=== PATIENT | female | born 1965 | race Two or more races ===

== ENCOUNTER → 2016-11-22 | Outpatient (CLI) | payer OTHER ==
[2016-11-22 13:24] LABS: BUN 19 mg/dL (7-18)
[2016-11-22 13:26] LABS: GFR (ESTIMATED) 105 ML/MIN (59-)
== END ==
LOC: MAY-LAB 13:02
PROVIDERS: Internal Medicine
DX: E78.5 Hyperlipidemia, unspecified (principal)